=== PATIENT | male | born 1970 | race Caucasian/White ===

== ENCOUNTER 2018-07-30 19:07 | Emergency (ER) | payer OTHER ==
[~2018-07-30] VITALS: Ht 180.3 cm; Wt 87.1 kg
[2018-07-30 19:21] VITALS: BP 150/95
--- NOTE | 2018-07-30 19:33 | PHYS DOC ---
Past History Past Medical History: No Pertinent History Past Surgical History: Other Alcohol Use: None Drug Use: None Adult General Chief Complaint Chief Complaint: FOOT INJURY PAIN HPI HPI Patient is a healthy 48-year-old male who is an active member the , he states at 6:30 AM this morning he was running, when he injured his left foot, which landed awkwardly, and he is having pain on the lateral aspect of his left foot. He is able to bear weight, but it is painful to do so. He denies any numbness or weakness. He denies any other injuries. Review of Systems Review of Systems Constitutional: Denies fever or chills [] Musculoskeletal: Denies back pain or joint pain, except as noted in the history of present illness. [] Integument: Denies rash or skin lesions [] Neurologic: Denies headache, focal weakness or sensory changes [] Physical Exam Physical Exam PHYSICAL EXAM: HEENT: Atruamatic NECK: Supple, normal ROM, non-tender. CARDIAC: Regular Rate and Rhythm LUNGS: Clear Bilaterally EXTREMITIES: There is tenderness to palpation mild soft tissue swelling at the lateral aspect of the left foot, at the base of the fifth metatarsal. The ankle is nontender, and the remainder of the left foot is nontender, with a strong dorsalis pedis pulse and normal range of motion in the toes. The remainder of the extremities are atraumatic. Current Patient Data Vital Signs Vital Signs Date Time Temp Pulse Resp B/P (MAP) Pulse Ox O2 Delivery O2 Flow Rate FiO2 07/30/18 19:21 97.8 53 20 97 Room Air EKG EKG [] Radiology/Procedures Radiology/Procedures [ER physician preliminary foot x-ray interpretation: Nelson fracture at the base of the fifth metatarsal, no other acute abnormality noted.] Course & Med Decision Making Course & Med Decision Making Pertinent Imaging studies reviewed. (See chart for details) SPLINT APPLICATION PROCEDURE NOTE: A posterior short leg splint was placed on the left leg and foot by ER nursing, examined by me post-. PMS intact post-placed. I discussed the mildly elevated blood pressure noted upon arrival, and stressing importance for close monitoring. I do not believe the patient has underlying hypertension and I believe his blood pressure elevation is situational. We discussed test results, home care plan, the need for orthopedic follow-up, nonweightbearing status and return precautions. The patient declines the need for analgesic medication to go home. Dragon Disclaimer Dragon Disclaimer This electronic medical record was generated, in whole or in part, using a voice recognition dictation system. Departure Departure: Impression: Primary Impression: Nelson fracture Disposition: HOME, SELF-CARE Condition: STABLE Referrals: PCP,UNKNOWN (PCP) Patient Instructions: Crutch Use, Foot Fracture Additional Instructions: You have a Nelson fracture, which requires orthopedic follow-up. Please call Dr. Stauffer, at [phone] at [facility], to schedule follow-up in the coming days. Do not bear weight on your left foot until you are instructed to do so by an orthopedic surgeon. TOMMY HENDRIX MD Jul 30, 2018 19:33
--- NOTE | 2018-07-31 02:11 | RAD ---
Three-view left foot radiographs 07/30/2018 CLINICAL HISTORY: Fall with injury to the lateral left foot. AP, lateral and oblique digital radiographs of the left foot were obtained. An acute oblique fracture of the base of the left fifth metatarsal is noted. The alignment of the fracture fragments is near-anatomic. No additional fracture is seen. IMPRESSION: Acute fracture involving the base of the left fifth metatarsal. Electronically signed by: Alvaro Fernandez MD (07/31/2018 2:08 AM) [id number]
== END 2018-07-30 19:56 | disposition home or self-care (01) ==
LOC: ER 19:07
DX: S92.352A Displaced fracture of fifth metatarsal bone, left foot, initial encounter for closed fracture (principal); W18.30XA Fall on same level, unspecified, initial encounter; Y93.02 Activity, running; Y92.89 Other specified places as the place of occurrence of the external cause; Y99.0 Civilian activity done for income or pay
CPT/HCPCS: 29515; 73630; 99283